=== PATIENT | female | born 1990 | race Caucasian/White ===

== ENCOUNTER 2022-11-15 14:29 | Emergency (ER) | payer MEDICAID ==
[~2022-11-15] VITALS: Ht 157.5 cm; Wt 74.8 kg
[2022-11-15 14:49] VITALS: BP_SYST 121
--- NOTE | 2022-11-15 15:11 | NUR ---
Patient triaged and placed in waiting room. VSS and patient appears in no acute distress at this time. Accompanied by self, awaiting available bed, and MD notified of need for MSE.
--- NOTE | 2022-11-15 15:15 | NUR ---
Pt brought by self, A&oX4, pt presents to ER for STD chesk , states she may have syphilis, also c/o bump on L hip , pt injects herself with heroine, VSS, respirations even and unlabored, cap refill <3.
--- NOTE | 2022-11-15 15:45 | NUR ---
Dr Saeed evaluating patient in the triage room
[2022-11-15 15:49] LABS: BILIRUBIN,URINE NEGATIVE (NEGATIVE); CLARITY/URINE CLOUDY (CLEAR); COLOR,URINE YELLOW (YELLOW); GLUCOSE,URINE NEGATIVE (NEGATIVE); KETONES,URINE NEGATIVE (NEGATIVE); LEUKOCYTE ESTERASE ,URINE NEGATIVE (NEGATIVE); NITRITE, URINE POSITIVE (NEGATIVE); PROTEIN URINE NEGATIVE (NEGATIVE); UROBILINOGEN,URINE 0.2 (0.2-1.0)
[2022-11-15 15:55] LABS: BLOOD, URINE TRACE (NEGATIVE)
[2022-11-15 16:01] LABS: BACTERIA,URINE MANY /HPF (None Seen); MUCUS,URINE None Seen /LPF (None Seen); WBC,URINE NONE SEEN /HPF (0-3)
--- NOTE | 2022-11-15 16:30 | NUR ---
Pt A&Ox4, VSS , respirations even and unlabored
[2022-11-15] MEDS ORDERED: CLIN-142 PO (21:19)
[2022-11-15] MEDS ORDERED: CLINDAMYCIN HCL 150 MG CAPSULE PO ONE (21:30)
--- NOTE | 2022-11-15 21:42 | NUR ---
Patient given written and verbal discharge instructions and verbalizes understanding. ER MD discussed with patient the results and treatment provided. Patient in stable condition. ID arm band removed. Rx of Clindamycin given. Patient educated on pain management and to follow up with PMD. Pain Scale 2/10 . Opportunity for questions provided and answered. Medication side effect fact sheet provided.
[2022-11-15 21:43] VITALS: BP_SYST 121
== END 2022-11-15 21:43 | disposition home or self-care (01) ==
LOC: SED 14:29
DX: L03.115 Cellulitis of right lower limb (principal); R22.41 Localized swelling, mass and lump, right lower limb; Z79.899 Other long term (current) drug therapy
CPT/HCPCS: 36415; 81000; 81025; 84703; 86592; 87086; 99283